=== PATIENT | female | born 1980 | race Caucasian/White ===

== ENCOUNTER 2023-07-09 13:28 | Emergency (ER) | payer OTHER, SELFPAY ==
[2023-07-09 13:30] VITALS: BP 134/98
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
[2023-07-09] MEDS: TYLENOL 650 MG PO (14:49)
[2023-07-09] MEDS: MOTRIN 600 MG PO (15:51)
== END 2023-07-09 15:56 | disposition home or self-care (01) ==
LOC: EMR 13:28
PROVIDERS: EMERGENCY PHYSICIAN Emergency Medicine; FAMILY PHYSICIAN Internal Medicine
DX: R51.9 Headache, unspecified (principal); R11.0 Nausea; R42 Dizziness and giddiness; V49.40XA Driver injured in collision with unspecified motor vehicles in traffic accident, initial encounter; G35 Multiple sclerosis; F17.290 Nicotine dependence, other tobacco product, uncomplicated
CPT/HCPCS: 99283

== ENCOUNTER 2023-12-02 17:39 | Emergency (ER) | payer OTHER, SELFPAY ==
[2023-12-02 17:42] VITALS: BP 130/88
[2023-12-02 19:20] VITALS: BP 126/82
--- NOTE | 2023-12-02 23:00 | ED.MUSCINJ ---
HPI-Injury
General
Chief Complaint: Musculo-Skeletal Complaint
Source: patient
Exam Limitations: none
Time Seen by Provider: 12/02/23 18:39
Nursing documentation reviewed up to this point in time: agreed with
History of Present Illness-Injury
Is this injury a work related problem?: No
Is pt an associate of [facility]?: No
Initial Injury comments:
Patient to ED with complaint of pain to right knee and ankle. States she got her foot caught in her pants. Henry a pop and pain to knee. Brought to ED by spouse for eval. Hx MS
Past History
Past History
ED Past Medical History: Psychiatric (Anxiety, depression) and Other (eye ulcers)
ED Past Surgical History: and Orthopedic (Left knee arthroscopy 2016)
Social History
Tobacco: Vaping
Alcohol: Occasional
Drug: None
Personal:
Living: with family
Employment: Employed (Angular Developer)
Family History
Family History: Diabetes; Negative Early CAD
Review of Systems
Review of Systems
Allergies reviewed?: Yes
All Other Systems: ROS reviewed and negative except as documented in HPI and ROS
Constitutional: Reports no symptoms
EENT: Reports no symptoms
Respiratory: Reports no symptoms
Cardiac: Reports no symptoms
ABD/GI: Reports no symptoms
: Reports no symptoms
Musculoskeletal: Reports joint pain (right knee and ankle pain)
Skin: Reports no symptoms
Neurological: Reports no symptoms
Psychiatric: Reports no symptoms
Musculoskeletal Injury Exam
Musculoskeletal Injury Exam
Right Lateral Ankle:
Pain with Movement?: Moderate
Tender to palpation?: Mild
Soft tissue swelling?: None
External deformity and angulation?: None
Joint effusion?: None
Contusion?: None
Strain- Sprain- Tear (Connective tissue injury)?: Moderate
Crepitus with movement?: No
Joint instability?: No
Malalignment/deformity?: No
Range of motion: Full
Distal skin color and temperature: normal-warm & good color
Capillary Refill: normal
Normal distal neurovascular exam?: Yes
Peripheral Pulses: posterior tibial (right): 3+ and dorsalis pedis (right): 3+
Right Medial Knee:
Pain with Movement?: Moderate
Tender to palpation?: Moderate
Soft tissue swelling?: None
External deformity and angulation?: None
Joint effusion?: None
Contusion?: None
Hematoma-local bleeding into tissue?: None
Strain- Sprain- Tear (Connective tissue injury)?: Moderate
Crepitus with movement?: No
Joint instability?: No
Malalignment/deformity?: No
Range of motion: Limited
Distal skin color and temperature: normal-warm & good color
Capillary Refill: normal
Normal distal neurovascular exam?: Yes
Phy Exam
General Physical Exam
General Presentation: well appearing and mild distress
General age: appears stated age
General Skin: warm and dry
General Habitus: normal
General Mental: alert
Musculoskeletal Exam
Musculoskeletal Exam: neuro vasc intact and other (Achilles intact. No tenderness base of 5th, proximal tib/fib, hip)
Skin Exam
Skin Exam: normal color, warm/dry and no rash
Psychiatric Exam
Psychiatric Exam: normal mood/affect
Injury Course
Orders/Labs/Results
Orders:
Orders
12/02/23 17:46
CR Ankle - Right Min 3 Views * Urgent
Comment:
Reason For Exam: tender ankle after twisting injury
CR Knee- Right 4 Or More View* Urgent
Comment:
Reason For Exam: tender knee after twisting injury
12/02/23 18:43
Knee Immobilizer Right-Treatme ONCE
12/02/23 18:45
Air Splint Right-Treatment ONCE
*Radiology
Radiology exam reviewed: radiology read reviewed
*Pulse Oximetry
Patient hypoxic: no
*Critical Care Note
Total Time (30-74mins, 75-104mins- exclusive of procedures): Not Applicable
ED Attending Note
-
Portions of this chart may have been created with voice recognition software.� Occasional wrong word or��sound alike� substitutions may have occurred due to the inherent limitations of voice recognition software.
Discharge Plan
Departure
Patient Disposition: Home (Routine Discharge)
Date of Disposition: 12/02/23
Time of Disposition: 18:43
Patient with high blood pressure during this ER visit?: No
Condition: Good
Covid-19: Not Applicable
Discharge Problem:
Right knee sprain
Instructions: Knee Immobilizer (DC), Ibuprofen, Using Cold for Pain, Ankle Sprain ED, Knee Sprain ED
Prescriptions:
No Action
bupropion HCl [Wellbutrin SR] 150 MG tablet sustained-release 12 hr
150 mg PO BID
sertraline [Zoloft] 100 MG tablet
100 mg PO HS
ibuprofen [Advil] 200 MG tablet
400 mg PO PRN PRN (Reason: headache)
cyclobenzaprine 10 mg tablet
10 mg PO TID PRN (Reason: back pain, spasm) Qty: 15 0RF
ibuprofen 600 mg tablet
600 mg PO TID PRN (Reason: pain) Qty: 30 0RF
Referrals:
Jcarlos Melo MD [Active] - Next open appointment
Stand Alone Forms: Return to Work
Interventions
Interventions:
*Risk Screen - Suicide Last Done: 12/02/23 19:10
*General Assessment Last Done: 12/02/23 19:10
*Neglect/Abuse Screening Last Done: 12/02/23 19:10
ED- Fall Risk Assessment Last Done: 12/02/23 19:10
*ED COVID-19 Vaccine History Last Done: 12/02/23 19:10
*Nursing Disposition Last Done: 12/02/23 19:30
ED-Musculoskeletal Assessment Last Done: 12/02/23 19:10
Discharge Date and Time
Discharge Date/Time: 12/02/23 19:30
Print Language: LAO
== END 2023-12-02 19:30 | disposition home or self-care (01) ==
LOC: EMR 17:39
PROVIDERS: EMERGENCY PHYSICIAN Emergency Medicine; FAMILY PHYSICIAN Family Medicine
DX: S83.91XA Sprain of unspecified site of right knee, initial encounter (principal); S99.911A Unspecified injury of right ankle, initial encounter; X50.1XXA Overexertion from prolonged static or awkward postures, initial encounter; F32.A Depression, unspecified; F41.9 Anxiety disorder, unspecified; F17.290 Nicotine dependence, other tobacco product, uncomplicated; Z88.5 Allergy status to narcotic agent; Z88.0 Allergy status to penicillin; Z88.2 Allergy status to sulfonamides
CPT/HCPCS: 99283; 29505; 29515; 73564; 73610

== ENCOUNTER 2024-04-23 11:50 | Emergency (ER) | payer OTHER, SELFPAY ==
[2024-04-23 11:55] VITALS: BP 125/72
--- NOTE | 2024-04-23 13:01 | ED.GENMED ---
History of Present Illness
General
Chief Complaint: Flank Pain
Source: patient
Exam Limitations: none
Time Seen by Provider: 04/23/24 12:43
Nursing documentation reviewed up to this point in time: agreed with
History of Present Illness
History of Present Illness:
Patient with history of kidney stones, presents to ED secondary to recurrent left flank pain associate with nausea sensation, which woke the patient up from sleep this morning. Denies fever or chills. Denies vomiting or diarrhea. Denies trauma.
Denies recent change in medications or diet. Patient states that her symptoms are similar to what she has experienced in the past secondary to kidney stone.
Past History
Past History
ED Past Medical History: Psychiatric (Anxiety, depression) and Other (eye ulcers)
ED Past Surgical History: and Orthopedic (Left knee arthroscopy 2016)
Social History
Tobacco: Vaping
Alcohol: Occasional
Drug: None
Personal:
Living: with family
Employment: Employed ([employer] Member)
Family History
Family History: Diabetes; Negative Early CAD
Review of Systems
Review of Systems
Allergies reviewed?: Yes
All Other Systems: ROS reviewed and negative except as documented in HPI and ROS
Constitutional: Reports no symptoms
Respiratory: Reports no symptoms
Cardiac: Reports no symptoms
ABD/GI: Reports nausea; Denies vomiting
: Reports flank pain
Musculoskeletal: Reports no symptoms
Skin: Reports no symptoms
Neurological: Reports no symptoms
Phy Exam
Physical Exam
Physical Exam:
Physical Exam
General: moderate painful distress, not acutely ill. afebrile
Head: nc/at. eomi
Neck: supple. no meningeal signs.
Heart: tachycardic, no murmur. equal radial pulses.
Lungs: no acute respiratory distress. clear bilaterally
Abdomen: normal bowel sounds. not tender.
Neuro: alert and oriented x 3. no focal neurological deficits
Skin: no rash
Psychiatric: well kept. interactive and cooperative
Extremities: no edema. no calf tenderness.
Course
Orders/Labs/Results
Orders:
Orders
04/23/24 12:55
0.9% Sodium Chloride 500 ml [Nss] 500 ml IV BOLUS
Ketorolac [Toradol] 15 mg IV NOW STA
Morphine Sulfate 2 mg IV NOW STA
Ondansetron Injectable [Zofran] 4 mg IV NOW STA
04/23/24 12:56
Test Result ONCE
US Renal Only W/O Bladder Urgent
Comment:
Reason For Exam: left flank pain
04/23/24 12:59
Basic Metabolic Panel Urgent
Complete Blood Count/No Diff Urgent
HCG, Serum Qualitative Screen Urgent
Urinalysis Reflex To Culture Urgent
Date Specimen was Collected: 04/23/24
Time Specimen was Collected: 12:57
Urine Microscopic Reflex Cult Urgent
Urine Culture Urgent
ANN Source: U
Specimen Description:
Date Specimen was Collected: 04/23/24
Time Specimen was Collected: 12:57
Abnormal Lab Results
04/23/24
12:59
Glucose 135 H mg/dl
(70-99)
Ur Occult Blood Reflex 3+ A
(Negative)
Urine RBC 16-20 A /HPF
(0-2)
Urine Bacteria (Reflex) Moderate A
(Negative)
04/23/24 12:59
04/23/24 12:59
Vital Signs
Initial and Last Documented VS:
Initial Vital Signs
Temp Pulse Resp BP Pulse Ox
98.5 F 114 18 125/72 98
04/23/24 11:55 04/23/24 11:55 04/23/24 11:55 04/23/24 11:55 04/23/24 11:55
Last Documented Vital Signs
Temp Pulse Resp BP Pulse Ox
98.5 F 98 20 124/78 99
04/23/24 11:55 04/23/24 15:24 04/23/24 15:24 04/23/24 15:24 04/23/24 15:24
MDM/Problems Addressed
MDM/Problems Addressed:
History, exam, and renal ultrasound consistent with likely renal colic presentation. Fortunately, after treatment, patient is without any further pain and remains hemodynamically stable. As patient has spontaneously passed her previous kidney
stones, patient will be discharged home with urine strainer, with referral to urology for an outpatient follow-up. Patient advised to return to ED with worsening symptoms, i.e. fever/inability to urinate/worsening pain. Patient expressed
understanding at time of discharge, to the care of her family.
*Critical Care Note
Total Time (30-74mins, 75-104mins- exclusive of procedures): Not Applicable
ED Attending Note
-
Portions of this chart may have been created with voice recognition software.� Occasional wrong word or��sound alike� substitutions may have occurred due to the inherent limitations of voice recognition software.
Discharge Plan
Departure
Patient Disposition: Home (Routine Discharge)
Date of Disposition: 04/23/24
Time of Disposition: 15:10
Patient with high blood pressure during this ER visit?: Yes
Condition: Good
Discharge Problem:
Renal colic
Instructions: Renal Colic (DC)
Prescriptions:
New
oxycodone-acetaminophen [Percocet] 5-325 mg Tablet
1 tab PO Q6HPRN PRN (Reason: pain) Qty: 12 0RF
tamsulosin [Flomax] 0.4 mg Capsule
0.4 mg PO DAILY Qty: 7 0RF
ondansetron 4 mg Tablet,Disintegrating
4 mg PO TIDPRN PRN (Reason: nausea/vomiting) Qty: 12 0RF
No Action
bupropion HCl [Wellbutrin SR] 150 MG tablet sustained-release 12 hr
150 mg PO BID
sertraline [Zoloft] 100 MG tablet
100 mg PO HS
ibuprofen [Advil] 200 MG tablet
400 mg PO PRN PRN (Reason: headache)
cyclobenzaprine 10 mg tablet
10 mg PO TID PRN (Reason: back pain, spasm) Qty: 15 0RF
ibuprofen 600 mg tablet
600 mg PO TID PRN (Reason: pain) Qty: 30 0RF
Referrals:
Benji Thakur MD [Family Provider] -
Johnson Seaman MD [Active] -
Activity Restrictions/Additional Instructions:
As discussed, please follow-up with referred urologist for further evaluation and treatment. Please consider return to ED with worsening symptoms, i.e. fever/inability to urinate/worsening pain. Your prescriptions have been sent electronically to
[facility] pharmacy in [place].
Interventions
Interventions:
*Risk Screen - Suicide Last Done: 04/23/24 11:55
*General Assessment Last Done: 04/23/24 11:55
ED- Fall Risk Assessment Last Done: 04/23/24 12:00
*ED COVID-19 Vaccine History Last Done: 04/23/24 11:55
*Nursing Disposition Last Done: 04/23/24 15:24
DK-Qzjnxh-Txdkshrare Assessment Last Done: 04/23/24 12:00
ED-Female Genitourinary Assessment Last Done: 04/23/24 12:00
Discharge Date and Time
Print Language: TAJIK
[2024-04-23] MEDS: NSS 500 IV (13:02)
[2024-04-23] MEDS: TORADOL 15 MG IV (13:02)
[2024-04-23] MEDS: MORPHINE SULFATE 2 MG IV (13:02)
[2024-04-23] MEDS: ZOFRAN 4 MG IV (13:02)
[2024-04-23 13:21] LABS: Hematocrit 40.8 % (37.0-47.0); Mean Corp Hgb Conc. 34.3 g/dL (33.0-37.0); Mean Corpuscular Hgb 28.1 pg (27.0-31.0); Mean Corpuscular Volume 81.8 fL (81.0-99.0); Mean Platelet Volume 10.2 fL (7.4-10.4); Platelet Count 376 10^3/uL (130-400); Red Blood Cell Count 4.99 10^6/uL (4.20-5.40); Red Cell Dist. Width 12.5 % (11.5-14.5); White Blood Cell Count 8.6 10^3/uL (4.8-10.8)
[2024-04-23 13:26] VITALS: BP 128/88
[2024-04-23 13:29] LABS: HCG, Serum Qualitative Screen Negative
[2024-04-23 13:31] LABS: Urine Albumin Negative (Neg - Trace); Urine Bilirubin Negative (Negative); Urine Character Slightly Cloudy (Clear); Urine Color Yellow; Urine Glucose Negative (Negative); Urine Ketone Negative (Negative); Urine Leukocyte Negative (Negative); Urine Nitrite Negative (Negative); Urine Occult Blood 3+ (Negative); Urine Urobilinogen Negative (Neg - 1+)
[2024-04-23 13:36] LABS: Blood Urea Nitrogen 13 mg/dl (7-17); Calcium 9.8 mg/dl (8.4-10.2); Carbon Dioxide 22 mmol/L (22-30); Chloride 103 mmol/L (98-107); Glucose 135 mg/dl (70-99); Potassium 4.8 mmol/L (3.5-5.1); Sodium 137 mmol/L (135-145); eGFR > 60.00
[2024-04-23 13:50] LABS: Urine Bacteria Moderate (Negative); Urine Red Blood Cell 16-20 /HPF (0-2); Urine Squamous Cell >30 /LPF (Few); Urine White Cell 0-2 /HPF (0-5)
[2024-04-23 15:24] VITALS: BP 124/78
== END 2024-04-23 16:55 | disposition home or self-care (01) ==
LOC: EMR 11:50
PROVIDERS: EMERGENCY PHYSICIAN Emergency Medicine; FAMILY PHYSICIAN Family Medicine
DX: N23 Unspecified renal colic (principal); R11.0 Nausea; G35 Multiple sclerosis; F32.A Depression, unspecified; F41.9 Anxiety disorder, unspecified; F17.290 Nicotine dependence, other tobacco product, uncomplicated; Z87.442 Personal history of urinary calculi; Z88.5 Allergy status to narcotic agent; Z88.0 Allergy status to penicillin; Z88.2 Allergy status to sulfonamides
CPT/HCPCS: 99284; 96374; 96375 ×2; 96361; 76775; 80048; 81003; 81015; 84703; 85027; 87086